=== PATIENT | male | born 1975 | race Caucasian/White ===

== ENCOUNTER 2020-04-01 04:18 | Day surgery (SDC) | payer BC ==
[2020-03-31 12:06] VITALS: BMI 23.8
[2020-04-01] MEDS ORDERED: SUCCINYLCHOLINE CHLORIDE 200 MG/10 ML SYRINGE ONE (07:17)
[2020-04-01] MEDS ORDERED: PROPOFOL 20 ML ONE ×6 (07:17→09:12)
[2020-04-01] MEDS ORDERED: MIDAZOLAM HCL 2 MG/2 ML SINGLE DOSE VIAL ONE (07:17)
[2020-04-01] MEDS ORDERED: ceFAZolin 2 GRAM PREMIX BAG IVPB ONE (07:55)
[2020-04-01] MEDS ORDERED: LIDOCAINE HCL 1% EPINEPHRINE 1:200,000 30 ML VIAL (PF) ONE (08:07)
[2020-04-01] MEDS ORDERED: BUPIVACAINE HCL/PF 0.5% (5 MG/ML) 30 ML VIAL IJ ONE ×2 (08:33)
[2020-04-01] MEDS ORDERED: LIDOCAINE HCL 1%, 10 MG/ML (50 mL VIAL) SQ ONE ×2 (08:33)
[2020-04-01] MEDS ORDERED: ONDANSETRON 4 MG/2 ML VIAL IVPUSH PRN (10:14)
[2020-04-01] MEDS ORDERED: oxyCODONE HCL 5 MG TABLET PO PRN (10:14)
[2020-04-01] MEDS ORDERED: PROMETHAZINE HCL 25 MG/1 ML VIAL IVPUSH PRN (10:14)
[2020-04-01] MEDS ORDERED: LACTATED RINGERS SOLUTION 1,000 ML IV SCH (10:15)
[2020-04-01 11:12] VITALS: TEMP 97.5
[2020-04-01 11:56] VITALS: BP 122/82; PULSE 95
== END 2020-04-01 12:02 | disposition home or self-care (01) ==
LOC: JASU-SURG 04:18
PROVIDERS: ATTEND Podiatrist Foot Surgery
PROC: 0SGM04Z Fusion of Right Metatarsal-Phalangeal Joint with Internal Fixation Device, Open Approach (ICD-10-PCS; principal; 2020-04-01 07:30)
DX: M20.21 Hallux rigidus, right foot (principal)
CPT/HCPCS: 28750; C1713; 73630-TC-RT-FY; 88304-TC; 88311-TC; 94760; 97116-GP